=== PATIENT | female | born 1985 | race Caucasian/White ===

== ENCOUNTER 2022-10-02 18:37 | Emergency (ER) | payer SELFPAY ==
[2022-10-02 18:45] VITALS: BP 147/84; PULSE 79; RESP 18; TEMP 36.5; O2SAT 98; BMI 30.7
[2022-10-02] MEDS: ACETAMINOPHEN 500 MG TABLET 1000 MG PO (19:07)
[2022-10-02] MEDS: IBUPROFEN 400 MG TABLET 800 MG PO (19:08)
[2022-10-02 19:35] LABS: Basophils Absolute Auto 0.03 K/uL (0.00-0.30); Basophils Percent Auto 0.3 % (0.0-3.0); Eosinophils Absolute Auto 0.14 K/uL (0.00-0.50); Eosinophils Percent Auto 1.5 % (0.0-7.0); Hematocrit 39.5 % (33.0-51.0); Hemoglobin* 13.2 gm/dL (12.0-16.0); Immature Granulocytes Abs Auto 0.01 K/uL (0.00-0.30); Immature Granulocytes Pct Auto 0.1 %; Lymphocytes Absolute Auto 2.43 K/uL (0.90-2.90); Lymphocytes Percent Auto 25.6 % (20-44); Mean Corpuscular HGB Conc 33 gm/dL (32-36); Mean Corpuscular Hemoglobin 28 pg (26-34); Mean Corpuscular Volume 85 fL (80-100); Monocytes Percent Auto 7.1 % (0.0-11.0); Neutrophils Absolute Auto 6.22 K/uL (1.7-7.0); Neutrophils Percent Auto 65.4 % (42.0-72.0); Platelet Count* 456 K/uL (140-440); RDW Coefficient of Variation % 12.7 % (11.5-15.5); Red Blood Count 4.65 m/uL (4.00-5.20)
[2022-10-02 19:36] LABS: Chloride* 106 mmol/L (96-114); Potassium* 4.5 mmol/L (3.6-5.1); Sodium* 138 mmol/L (135-149)
[2022-10-02 19:39] LABS: Blood Urea Nitrogen* 9 mg/dL (5-24); Carbon Dioxide* 27 mmol/L (20-32); Creatinine* 0.6 mg/dL (0.5-1.5); Est. Creatinine Clearance* 119.01; Estimated Glomerular Filt Rate 118 ml/min; Glucose* 134 mg/dL (60-115)
[2022-10-02 19:40] LABS: Calcium* 8.9 mg/dL (8.4-10.6)
[2022-10-02 19:59] LABS: Troponin I* < 0.01 ng/mL (0.01-0.04)
--- NOTE | 2022-10-02 19:59 | ED_ITS ---
HPI - General Adult General Date Seen: 10/02/22 Chief complaint: Arrhythmia/Palpitations Stated complaint: Heart rate is 111 resting Time Seen by Provider: 10/02/22 18:38 Source: patient Mode of arrival: ambulatory Limitations: no limitations History of Present Illness HPI narrative: Patient is a 37-year-old female who comes in with numerous somatic concerns. Her Apple watch told her that her heart was beating erratically. She felt that it might be beating a little fast but could not tell if there was any irregularity. This did make her worried. She believes that her heart was going fast but regular. She then developed some discomfort in her chest that radiated to her jaw and down her left arm and down her left leg. She also complains of generalized achiness and some chills but no documented fever. No nausea, vomiting, acid reflux, cough. She does have a scratchy throat. She has no cardiac history. There is no significant family history. She is a vuga-ea-[id number] mom but has been too fatigued to do her normal household duties. She is concerned that this could be her heart. She has no history of exertional chest pain. She is not a smoker. She does not have a PCP but sees who ever is available at the [facility] and [facility] site. Related Data Home Medications Medication Instructions Recorded Confirmed No Known Home Medications 10/02/22 10/02/22 Allergies Allergy/AdvReac Type Severity Reaction Status Date / Time No Known Drug Allergies Allergy Verified 10/02/22 18:47 Review of Systems Narrative: Review of systems is outlined above otherwise noted to be negative. [facility] Social History Smoking Status: Unknown if ever smoked Do you use any of these nicotine containing products: None Second hand tobacco smoke exposure: No How often do you have a drink containing alcohol: monthly or less How many standard drinks containing alcohol do you have on a typical day: 1 or 2 How often do you have six or more drinks on one occasion: Never AUDIT-C Alcohol total score: 1 Non-prescribed substance use: denies use service: No Exam Narrative: Exam Narrative: Vitals noted. She does not appear uncomfortable. HEENT: Conjunctiva clear. Tympanic membranes are pearly white bilaterally. Posterior pharynx is clear without erythema or exudate. Neck is supple without adenopathy, thyromegaly. Lungs: Clear to auscultation in all lagunas. No wheezes, rales, rhonchi. Heart: Regular rate and rhythm without murmur. No ectopy is noted on exam. Abdomen: Soft and nontender. No guarding, rigidity, rebound. Bowel sounds are normal. No palpable masses. Extremities: No cyanosis or edema. Good distal pulses. Skin: No abnormalities noted of the exposed skin. Neurologic: Awake, alert, fully oriented. Neurologic exam is nonfocal. Const: Vital Signs, click to edit/add: Vital Signs - 24 hr 10/02/22 18:45 Temperature 97.7 F Pulse Rate [Right Pulse Oximeter] 79 Respiratory Rate 18 Blood Pressure [Ri ght Upper Arm] 147/84 H Pulse Oximetry 98 Oxygen Delivery Me thod Room Air Course Course Hospital Course: Patient is seen and examined. EKG is done and shows normal sinus rhythm with a rate of 69. No acute ST or T-wave changes. No ectopy. Labs are ordered. She is given a dose of ibuprofen 800 mg orally and Tylenol 1000 mg orally. Reevaluation(s) Reevaluation #1: CBC, BMP are normal. Troponin is negative. D-dimer is still pending. Reevaluation #2: D-dimer is also negative. Patient has had no worsening of her pain and basically is just achy all over. She acknowledges that people had her very anxious when she told them her story. She had a lipid panel done a couple of years ago that was normal. We discussed indications for a stress test. She needs to get established with a PCP locally. I have seen her once or twice in the clinic and would be happy to fill that role. Vital Signs Vital signs: Initial Vital Signs Temperature 97.7 F 10/02/22 18:45 Temperature Source Temporal Artery Scan 10/02/22 18:45 Pulse Rate 79 10/02/22 18:45 Respiratory Rate 18 10/02/22 18:45 Blood Pressure 147/84 H 10/02/22 18:45 Blood Pressure Mean 105 10/02/22 18:45 Blood Pressure Position Sitting 10/02/22 18:45 Pulse Oximetry 98 10/02/22 18:45 Oxygen Delivery Method Room Air 10/02/22 18:45 Vital Signs Temperature 97.7 F 10/02/22 18:45 Pulse Rate 79 10/02/22 18:45 Respiratory Rate 18 10/02/22 18:45 Blood Pressure 147/84 H 10/02/22 18:45 Pulse Oximetry 98 10/02/22 18:45 Oxygen Delivery Method Room Air 10/02/22 18:45 Temperature 97.7 F 10/02/22 18:45 Pulse Rate 79 10/02/22 18:45 Respiratory Rate 18 10/02/22 18:45 Blood Pressure 147/84 H 10/02/22 18:45 Pulse Oximetry 98 10/02/22 18:45 Oxygen Delivery Method Room Air 10/02/22 18:45 Medical Decision Making Lab Data Labs: Lab Results 10/02/22 Range/Units 19:10 WBC 9.50 (4.50-11.00) K/uL RBC 4.65 (4.00-5.20) m/uL Hgb 13.2 (12.0-16.0) gm/dL Hct 39.5 (33.0-51.0) % MCV 85 (80-100) fL MCH 28 (26-34) pg MCHC 33 (32-36) gm/dL RDW Coeff of Saadia 12.7 (11.5-15.5) % Plt Count 456 H (140-440) K/uL Neut % (Auto) 65.4 (42.0-72.0) % Lymph % (Auto) 25.6 (20-44) % [place] % (Auto) 7.1 (0.0-11.0) % Eos % (Auto) 1.5 (0.0-7.0) % Baso % (Auto) 0.3 (0.0-3.0) % Neut # (Auto) 6.22 (1.7-7.0) K/uL Lymph # (Auto) 2.43 (0.90-2.90) K/uL [place] # (Auto) 0.70 (0.00-0.90) K/UL Eos # (Auto) 0.14 (0.00-0.50) K/uL Baso # (Auto) 0.03 (0.00-0.30) K/uL D-Dimer Quant (PE/DVT) 0.48 (0.00-0.50) ug/ml Sodium 138 (135-149) mmol/L Potassium 4.5 (3.6-5.1) mmol/L Chloride 106 (96-114) mmol/L Carbon Dioxide 27 (20-32) mmol/L BUN 9 (5-24) mg/dL Creatinine 0.6 (0.5-1.5) mg/dL Estimated Creat Clear 119.01 Estimated GFR 118 ml/min Glucose 134 H (60-115) mg/dL Calcium 8.9 (8.4-10.6) mg/dL Troponin I < 0.01 L (0.01-0.04) ng/mL Discharge Plan Discharge Clinical Impression: Atypical chest pain Patient Disposition: Home, Self-Care Condition: Stable Additional Instructions: Rest, push fluids, take Tylenol and or ibuprofen regularly for the next few days. Follow-up in the clinic if her symptoms do not improve. If you have recurrent episodes of chest pain please see your PCP and get a stress echo scheduled. Your labs tonight are all very reassuring. Prescriptions: No Action No Known Home Medications Follow Up/Referrals: Provider,Not a Local [Primary Care Provider] - Stand Alone Forms: Animated Speech Info Instructions
[2022-10-02 20:02] LABS: Slide Review Reflex No
[2022-10-02 20:29] LABS: D Dimer Quantitative* 0.48 ug/ml (0.00-0.50)
== END 2022-10-02 21:05 | disposition home or self-care (01) ==
PROVIDERS: Emergency Provider Family Medicine
DX: R07.89 Other chest pain (principal)
CPT/HCPCS: 36415; 80048; 84484; 85025; 85379; 93005; 99283; 99284; A9270

== ENCOUNTER 2023-06-17 10:16 | Outpatient (CLI) | payer OTHER, SELFPAY | END 2023-06-17 10:17 | disposition home or self-care (01) | PROVIDERS: PCP Family Medicine; Visit Provider Family Medicine | DX: R10.13 Epigastric pain (principal) | CPT/HCPCS: 80053; 83690; 85025 ==

== ENCOUNTER 2023-06-25 08:30 | Outpatient (CLI) | payer OTHER, SELFPAY ==
--- NOTE | 2023-06-25 09:00 | CRLHL7_ITS ---
For Patients: As a result of the Century Cures Act, medical imaging exams and procedure reports are released immediately into your electronic medical record. You may view this report before your referring provider. If you have questions, please contact your health care provider. Indication: Epigastric pain Technique: Postcontrast CT abdomen and pelvis. 100 cc Isovue 370 intravenous contrast. Please note that all CT scans at this facility use dose modulation, iterative reconstruction, and/or weight-based dosing when appropriate to reduce radiation dose to as low as reasonably achievable. Comparison: 12/30/2019 Findings: Lung bases are clear. No pleural effusion. No intrahepatic mass. Spleen is within normal limits. Normal adrenal glands. Kidneys within normal limits. Normal pancreas. The gallbladder is normal. No gastric outlet obstruction. No adenopathy. Uterus normal. Normal ovaries. No bowel obstruction or free fluid. No abscess. Normal appendix. No abdominal wall hernia. Impression: No acute intra-abdominal or intrapelvic pathology. Please note that all CT scans at this facility use dose modulation, iterative reconstruction, and/or weight-based dosing when appropriate to reduce radiation dose to as low as reasonably achievable. Dictated by Man Vega MD @ 06/25/2023 1:06:50 PM (Electronically Signed)
== END 2023-06-25 08:31 | disposition home or self-care (01) ==
LOC: CT 08:31
PROVIDERS: PCP Family Medicine; Visit Provider Family Medicine
DX: R10.13 Epigastric pain (principal)
CPT/HCPCS: 74177; Q9967

== ENCOUNTER 2023-12-27 23:07 | Emergency (ER) | payer OTHER, SELFPAY ==
[2023-12-27 23:10] VITALS: BP 133/84; PULSE 72; RESP 16; TEMP 36.4; O2SAT 99; BMI 33.1
--- NOTE | 2023-12-27 23:42 | ED_ITS ---
HPI - General Adult General Chief complaint: Extremity Pain/Injury, Lower Stated complaint: left leg pain Time Seen by Provider: 12/27/23 23:41 History of Present Illness HPI narrative: pt reports left leg pain, from butt to ankle. Pain started couple weeks ago, unknown cause. pain rated 10/10. pt able to ambulate. 38-year-old woman presenting to the emergency department with complaint of deep aching pain from the left low back/buttock down to her ankle. Pain is persis tent in her left calf but feels some numbness into her foot as well. Seems to started a couple of weeks ago. Uncertain etiology. No specific trauma. Able to walk but just has been rather unbearable pain. No fevers or rash noted. Not really with discrete weakness though with pain that is limiting. No loss of bowel or bladder control noted. Underlying history of fibromyalgia. Would like relief of pain and appears to be expecting an MRI and maybe injection? Notes preference generally not to take medication. Does not want to waste resources generally and notes that is without insurance currently. Related Data Previous Rx's ?Medication ?Instructions ?Recorded oxycodone-acetaminophen 5 mg-325 1 - 2 tab PO Q8H PRN pain #20 tabs 01/22/24 mg tablet (Percocet) Allergies Allergy/AdvReac Type Severity Reaction Status Date / Time No Known Drug Allergies Allergy Verified 01/22/24 12:40 Review of Systems Status of ROS: Reports: 6 or more systems reviewed and unremarkable except as noted in History and below [facility] History History of abnormal cervical Pap smear (2004) ?Z87.42 - Personal history of other diseases of the female genital tract (ICD-10) Migraines ?G43.909 - Migraine, unspecified, not intractable, without status migrainosus (ICD-10) Obesity with body mass index (BMI) of 30.0 to 39.9 ?E66.9 - Obesity, unspecified (ICD-10) History of temporomandibular joint disorder ?Z87.39 - Personal history of other diseases of the musculoskeletal system a nd connective tissue (ICD-10) Generalized anxiety disorder ?F41.1 - Generalized anxiety disorder (ICD-10) Fibromyalgia ?M79.7 - Fibromyalgia (ICD-10) Chronic gastroesophageal reflux disease ?K21.9 - Gastro-esophageal reflux disease without esophagitis (ICD-10) Surgical History History of cryosurgery ?Z98.890 - Other specified postprocedural states (ICD-10) History of vaginal delivery History of breast biopsy ?Z98.890 - Other specified postprocedural states (ICD-10) Family History (Updated 06/14/23 @ 11:05 by Ann Spencer) Maternal Grandfather Colon cancer, Onset Age: 50 Maternal Grandmother Ovarian cancer Brother Seizure disorder Father Diabetes, Onset Age: 51 Social History Narrative: , two kids, homemaker, nonsmoker, no EtOH Smoking Status: Unknown if ever smoked Do you use any of these nicotine containing products: None Second hand tobacco smoke exposure: No How often do you have a drink containing alcohol: monthly or less How many standard drinks containing alcohol do you have on a typical day: 1 or 2 How often do you have six or more drinks on one occasion: Never AUDIT-C Alcohol total score: 1 Non-prescribed substance use: denies use Little interest or pleasure in doing things: several days Feeling down, depressed, or hopeless: not at all service: No Exam Narrative: Exam Narrative: Pleasant. Seated leaning to her right somewhat. Accompanied here by her daughter. Clearly very uncomfortable. Distracted in her pain I think. Sore to palpation in the left buttock area. Positive straight leg raise on the left. Sensation intact. No loss of muscle tone. Some soreness across the low back. Const: Vital Signs, click to edit/add: Vital Signs - 24 hr 12/27/23 23:10 Temperature 97.5 F L Pulse Rate [Left P ulse Oximeter] 72 Respiratory Rate 16 Blood Pressure [Ri ght Upper Arm] 133/84 Pulse Oximetry 99 Oxygen Delivery Me thod Room Air Documenting provider has reviewed patient's vital signs: yes Course Vital Signs Vital signs: Initial Vital Signs Temperature 97.5 F L 12/27/23 23:10 Temperature Source Temporal Artery Scan 12/27/23 23:10 Pulse Rate 72 12/27/23 23:10 Pulse Rhythm Regular 12/27/23 23:10 Respiratory Rate 16 12/27/23 23:10 Blood Pressure 133/84 12/27/23 23:10 Blood Pressure Mean 100 12/27/23 23:10 Pulse Oximetry 99 12/27/23 23:10 Oxygen Delivery Method Room Air 12/27/23 23:10 Vital Signs Temperature 97.5 F L 12/27/23 23:10 Pulse Rate 72 12/27/23 23:10 Respiratory Rate 16 12/27/23 23:10 Blood Pressure 133/84 12/27/23 23:10 Pulse Oximetry 99 12/27/23 23:10 Oxygen Delivery Method Room Air 12/27/23 23:10 Temperature 97.5 F L 12/27/23 23:10 Pulse Rate 72 12/27/23 23:10 Respiratory Rate 16 12/27/23 23:10 Blood Pressure 133/84 12/27/23 23:10 Pulse Oximetry 99 12/27/23 23:10 Oxygen Delivery Method Room Air 12/27/23 23:10 Medications Administered Medications: Discontinued Medications Generic Name Dose Route Start Last Admin Trade Name Sharmaine PRN Reason Stop Dose Admin Gabapentin 300 mg 12/28/23 00:25 12/28/23 00:43 Gabapentin 300 Mg Capsule PO 12/28/23 00:26 300 mg ONCE ONE Administration Medical Decision Making MDM Narrative Medical decision making narrative: Really does seem to have of lumbar radiculopathy. I would suspect discogenic disease with impingement. Seems to have probably and L5-S1 distribution. This appears to more than typical sciatica. We discussed options for imaging. I do not have MRI capability at this time of night. This seems to be upsetting. I would anticipate though MRI imaging is likely inevitable. Other imaging I think is of low yield and I want to be sensitive to cost considerations. Discussed at length options for treatment/pain relief. Will need MRI prior to any sort of injections I think. Most medications that might be beneficial are available in [facility] other than gabapentin. Will give a dose here prior to departure. Settled on options for medication as delineated in discharge plan. See patient discharge plan for further discussion Medical Records Medical records reviewed: Yes I reviewed the patient's medical records Discharge Plan Discharge Clinical Impression: Radiculopathy Patient Disposition: Home w/ Parent or Adult Condition: Stable Additional Instructions: See handout on exercises for radicular back pain/herniated disc; this might be a good place to start for stretches. As we discussed, this distribution of pain kind of exists in a continuum. Question is whether not it starts at the level of the lumbar discs, under the piriformis musculature or is otherwise a broader diagnosis of sciatica. You can continue with the ibuprofen up to 800 mg per dose or up to 1000 mg per dose of acetaminophen. Alternative to the ibuprofen might be up to 500 mg naproxen 2 times daily. Longer-term ibuprofen or naproxen dosing probably should be taken with food. Am prescribing a course of prednisone from [facility]. Take it as 60 mg daily for 2 days then 40 mg daily for 4 days. Also Percocet from [facility]. This contains an opiate oxycodone and 325 mg of acetaminophen in each tablet. 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 Gabapentin -- you received a dose here. This is for nerve pain. I am hand writing this prescription so you can take it to the pharmacy of your choice. You can begin at 300 mg 3 times daily but if in 5 or 6 days are not getting harjeet quate relief, could double that dose to 600 mg 3 times daily. If you find prescriptions too expensive, you can always ask for lesser quantity and/or also make sure you are receiving generic. You might consider an appointment soon to set up next steps in care/evaluation with your primary care provider. Alternatively might be able to see Dr. Jaiden Arteaga locally. He also does injections. Prescriptions: No Action oxycodone-acetaminophen [Percocet] 5-325 mg tablet 1 - 2 tab PO Q8H PRN (Reason: pain) Qty: 20 0RF Follow Up/Referrals: Man Hager MD [Primary Care Provider] - Stand Alone Forms: Personal Web Systems Info Instructions
[2023-12-28] MEDS: GABAPENTIN 300 MG CAPSULE PO (00:43)
--- OUTSIDE RECORDS SUMMARY | 2023-12-28 00:47 | XMS_ITS | Clinical Summary ---
Author Organization [employer] [facility] Address [place], [place] [address] Care Team Providers Care Supervisor Paper Coating Name Role Phone Faustino Mcgee MD Unavailable Clinic, No Pcp Or Primary Care Provider Unavaila ble Allergies No known active allergies Medications Medication Sig Dispensed Refills Start Date End Date Status omeprazole (PRILOSEC) 40 mg Delayed-Release capsuleIndications:GE RD (gastroesophageal reflux disease) Take 1 capsule by mouth once daily. 90 capsule 3 05/25/2014 Active cyclobenzaprine (FLEXERIL) 10 mg tabletIndications:Mus culoskeletal disorder involving suboccipital region,Headache syndrome Take 1 tablet by mouth 2 times daily if needed for Muscle Spasm. 30 tablet 08/31/2016 Active Active Problems Problem Noted Date Diagnosed Date Fibromyalgia affecting multiple sites 10/01/2014 Anxiety disorder 04/06/2014 GERD (gastroesophageal reflux disease) 4 Overview: EGD 12/2013 reflux Immunizations Name Administration Dates Next Due Tdap 05/25/2014 Family History Medical History Relation Name Comments Unknown Father Cancer-colon Maternal Grandfather in his 60s Cancer Maternal Grandmother ovarian ? Arthritis Mother Relation Name Status Comments Father Maternal Grandfather Maternal Grandmother Mother Social History Tobacco Use Types Packs/Day Years Used Date Smoking Tobacco: Never Smokeless Tobacco: Never Tobacco Cessation:Counseling Given: Yes Alcohol Use Standard Drinks/Week Comments No 0 (1 standard drink = 0.6 oz pur e alcohol) Sex and Gender Information Value Date Recorded Sex Assigned at Not on file Gender Identity Not on file Sexual Orientation Not on file Obstetrics History Para Term AB IAB SAB Ectopic Multiple Livin g Live Births 1 06 [birth year] 1 Date Outcome GA Total Labor Labor/2nd/3rd Weight Sex Type Anes PTL Batsheva A1 A5 Name Clin Term Comments menarche-10 Last Filed Vital Signs Vital Sign Reading Time Taken Comments Blood Pressure 114/75 08/31/2016 9:50 AM CDT Pulse 71 08/31/2016 9:50 AM CDT Temperature 36.6 ??C (97.8 ??F) 08/31/2016 9:50 AM CD T Respiratory Rate - - Oxygen Saturation 97% 08/31/2016 9:50 AM CDT Inhaled Oxygen Concentration - - Weight 99.9 kg (220 lb 3.2 oz) 08/31/2016 9:50 A M CDT Height 166 cm (5' 5.35) 08/31/2016 9:50 AM CDT Body Mass Index 36.25 08/31/2016 9:50 AM CDT Plan of Treatment Health Maintenance Due Date Last Done Comments HIV for age 15-65 1999 Hepatitis C screening for age 18-79 2002 BMI (ht and wt on same day) for age 18+ 08/31/2017 08/31/2016, 08/02/2015 Depression screening for age 12+ 08/31/2017 08/31/2016, 08/02/2015 Pap test for age 21-65 04/28/2022 9, 04/28/2019, 04/11/2015, Additional history exists COVID-19 vaccine series (2022- season) 2023 Influenza for age 9-49 02/02/2024 Tetanus booster 05/25/2024 05/25/2014 Tdap Completed 05/25/2014 Pneumococcal series for age 6-64 Aged Out No longer eligible based on patient's age to complete this topic Procedures Procedure Name Priority Date/Time Associated Diagnosis Comments CLINICAL INVESTIGATOR THIN PREP PAP SCREEN IMAGED Routine 04/28/2019 12:00 PM [employer] from Last 3 Months or Most Recently Relevant to Health Maintenance Results * CLINICAL INVESTIGATOR THIN PREP PAP SCREEN IMAGED (04/28/2019 12:00 PM [employer]BLE) Case Report Gynecologic Cytology Report ? Case: [id number] ? Authorizing Provider: ??Kortney Mata PA-C ?Collected: ? 04/28/2019 1200 ? Ordering Location: ? [facility] ?Received: ?04/29/2019 1118 ? First Screen: ?Nita Han ? Specimen: ?CLINICAL INVESTIGATOR ThinPrep Vial Screening, Cervical/Vaginal ? 05/11/2019 4:13 PM [facility] INTERPRETATION/ RESULT NEGATIVE FOR INTRAEPITHELIAL LESION OR MALIGNANCY (NIL) (none) 05/11/2019 4:13 PM [facility] IMEN ADEQUACY Satisfactory for evaluation Endocervical component present 05/11/2019 4:13 PM [facility] HPV REQUEST HPV and PAP 05/11/2019 4:13 PM [facility] Date of LMP 04/17/2019 05/11/2019 4:13 PM [facility] Last Pap Date 02/26/2012 05/11/2019 4:13 PM [facility] Last Pap Result NIL 4:13 PM [facility] Automated Review Successful 05/11/2019 4:13 PM [facility] Comment:Specimen processed s uccessfully by automated stress engineer device, ThinPrep Imaging System, [employer] ANCILLARY TESTING CLINICAL INVESTIGATOR HPV Ordered, Please see separate report 05/11/2019 4:13 PM [facility] [employer] Note The pap test is a screening technique, not a diagnostic procedure. ??It is used primarily to screen for squamous cancers and precursor lesions. ??Published studies have shown that it is subject to both false negative and false positive results. ??The pap test should not be used as the sole means to diagnose or exclude pre-malignant and malignant lesions. Cytology is screened and interpreted at [facility] - [address], [place] [address] and [facility] - [address]; [place] [address] and [facility] - [address]; [place] [address] and [facility] [address]; [place] [address] 05/11/2019 4:13 PM [employer]PER[facility]OR MARBLE [facility] Other (Cervical/Vagina l) 04/28/2019 12:00 PM [employer]BLE 04/29/2019 11:18 AM [employer]OR [employer]BLE [facility] Esperanza [facility] PATHOLOGY/CYTOLOGY [facility] [address] [place] [address], [place] from Last 3 Months or Most Recently Relevant to Health Maintenance Care Teams Supervisor Paper Coating Relationship Specialty Start Date End Date Clinic, No Pcp Or . PCP - General 07/08/17 Faustino Mcgee MD [address] [place] [address] 10/06/13
== END 2023-12-28 01:01 | disposition home or self-care (01) ==
LOC: ED 12-28 00:46
PROVIDERS: Emergency Provider Family Medicine; PCP Family Medicine
DX: M54.16 Radiculopathy, lumbar region (principal)
CPT/HCPCS: 99283; 99284; A9270

== ENCOUNTER 2024-01-10 18:04 | Outpatient (CLI) | payer OTHER, SELFPAY ==
--- OUTSIDE RECORDS SUMMARY | 2024-01-10 18:07 | XMS_ITS | Clinical Summary ---
Author Organization [facility] Address [place], [place] [address] Care Team Providers Care Packaging Clerk Name Role Phone Faustino Mcgee MD Unavailable [phone] Clinic, No Pcp Or Primary Care Provider [...] Procedure Name Priority Date/Time Associated Diagnosis Comments MANAGER AMBULATORY THIN PREP PAP SCREEN IMAGED Routine 04/28/2019 12:00 PM PLATING FOREMAN from Last 3 Months or Most Recently Relevant to Health Maintenance Results * MANAGER AMBULATORY THIN PREP PAP SCREEN IMAGED (04/28/2019 12:00 PM PLATING FOREMAN) Case Report Gynecologic Cytology Report ? Case: [id number] ? Authorizing Provider: ??Kortney Mata PA-C ?Collected: ? 04/28/2019 1200 ? Ordering Location: ? [facility] ?Received: ?04/29/2019 1118 ? First Screen: ?Nita Han ? Specimen: ?MANAGER AMBULATORY ThinPrep Vial Screening, Cervical/Vaginal ? 05/11/2019 4:13 PM [facility] INTERPRETATION/ RESULT NEGATIVE FOR INTRAEPITHELIAL LESION OR MALIGNANCY (NIL) (none) 05/11/2019 4:13 PM [facility] IMEN ADEQUACY Satisfactory for evaluation Endocervical component present 05/11/2019 4:13 PM [facility] HPV REQUEST HPV and PAP 05/11/2019 4:13 PM [facility] Date of LMP 04/17/2019 05/11/2019 4:13 PM [facility] Last Pap Date 02/26/2012 05/11/2019 4:13 PM [facility] Last Pap Result NIL 4:13 PM [facility] Automated Review Successful 05/11/2019 4:13 PM [facility] Comment:Specimen processed s uccessfully by automated peanut sheller device, ThinPrep Imaging System, [employer] ANCILLARY TESTING MANAGER AMBULATORY HPV Ordered, Please see separate report 05/11/2019 4:13 PM PLATING FOREMAN [facility] Note The pap test [...] lesions. Cytology is screened and interpreted at [facility] - [address], [place] [address] and [facility] - [address]; [place] [address] and [facility] - [address]; [place] [address] and [facility] [address]; [place] [address] 05/11/2019 4:13 PM PLATING FOREMAN [facility] Other (Cervical/Vagina l) 04/28/2019 12:00 PM PLATING FOREMAN 04/29/2019 11:18 AM PLATING FOREMAN September Esperanza DAI PATHOLOGY/CYTOLOGY [facility] [address] [place] [address], [place] from Last 3 Months or Most Recently Relevant to Health Maintenance Care Teams Packaging Clerk Relationship Specialty Start Date End Date Clinic, No Pcp Or . PCP - General 07/08/17 Faustino Mcgee MD [address] [place] [address] 10/06/13
--- NOTE | 2024-01-10 18:15 | CRLHL7_ITS ---
For Patients: As a result of the Century Cures Act, medical imaging exams and procedure reports are released immediately into your electronic medical record. You may view this report before your referring provider. If you have questions, please contact your health care provider. INDICATION: Radiculopathy. Low back pain into left leg. TECHNIQUE: Multiplanar multisequence noncontrast MR images of the lumbar spine. COMPARISON: None. FINDINGS: The lumbar lordosis is preserved. Vertebral body heights are maintained. No acute fracture or spondylolisthesis. No T1 hypointense lesions or significant marrow edema. Normal conus terminates at L1. T12-L1 through L4-5: No spinal canal or neural foraminal narrowing. L5-S1: Moderate disc degeneration. Disc height loss. Posterior disc bulge. Broad-based left subarticular disc protrusion measuring 6 mm in short axis severely narrows the left lateral recess. Mild facet arthropathy. Minimal spinal canal narrowing. No neural foraminal narrowing. IMPRESSION: 1. At L5-S1, left subarticular disc protrusion severely narrows the left lateral recess with likely impingement of traversing left S1 nerve roots. 2. No spinal canal or neural foraminal stenosis. Dictated by Alvarado Goodson MD @ 01/12/2024 8:59:36 PM (Electronically Signed)
== END 2024-01-10 18:05 | disposition home or self-care (01) ==
PROVIDERS: PCP Family Medicine; Visit Provider Family Medicine
DX: M54.50 Low back pain, unspecified (principal); M51.27 Other intervertebral disc displacement, lumbosacral region; M54.16 Radiculopathy, lumbar region; M79.605 Pain in left leg
CPT/HCPCS: 72148